=== PATIENT | male | born 1940 | race Caucasian/White ===

== ENCOUNTER 2016-05-19 07:31 | Outpatient (CLI) | payer MEDICARE ==
[2016-05-19 08:17] LABS: ALT (SGPT) 10 U/L (0-55); AST (SGOT) 11 U/L (5-34); Albumin 3.4 g/dL (3.4-4.8); Alkaline Phosphatase 58 U/L (40-150); Bilirubin, Direct 0.2 mg/dL (0.1-0.3); Bilirubin, Total 0.4 mg/dL (0.2-1.2); Cardiac Risk 2.1 (Less than 4.5); Cholesterol 108 mg/dL (< 200 Desired); HDL Cholesterol 51 mg/dL (>60 Neg Risk); LDL Cholesterol, Calculated 46 mg/dL; Protein, Total 5.4 g/dL (5.8-8.1); Triglycerides 54 mg/dL (Less than 150)
== END 2016-05-19 07:32 | disposition home or self-care (01) ==
LOC: MADLAB 07:31
PROVIDERS: ATTEND Internal Medicine Cardiovascular Disease
DX: E78.00 Pure hypercholesterolemia, unspecified (principal)
CPT/HCPCS: 36415; 80061; 80076

== ENCOUNTER 2016-07-12 06:45 | Outpatient (CLI) | payer MEDICARE ==
[2016-07-12 07:43] LABS: Anion Gap 13 mmol/L (10-20); Chloride 107 mmol/L (98-107); Glucose 102 mg/dL (83-110); Potassium 3.8 mmol/L (3.5-5.1)
[2016-07-12 08:31] LABS: BUN (Urea Nitrogen) 23 mg/dL (8.4-25.7); Calc. Creatinine Clearance 0 mL/min (70-130); Carbon Dioxide 28 mmol/L (23-31); Estimated GFR-MDRD 68; Sodium 144 mmol/L (136-145)
== END 2016-07-12 06:46 | disposition home or self-care (01) ==
LOC: MADLAB 06:45
PROVIDERS: ATTEND Internal Medicine Cardiovascular Disease
DX: E78.2 Mixed hyperlipidemia (principal); I25.10 Atherosclerotic heart disease of native coronary artery without angina pectoris; I10 Essential (primary) hypertension
CPT/HCPCS: 36415; 80048

== ENCOUNTER 2016-12-24 07:19 | Outpatient (CLI) | payer MEDICARE ==
[2016-12-24 08:10] LABS: Anion Gap 10 mmol/L (10-20); BUN (Urea Nitrogen) 26 mg/dL (8.4-25.7); Calc. Creatinine Clearance 0 mL/min (70-130); Calcium 8.5 mg/dL (7.8-10.44); Carbon Dioxide 28 mmol/L (23-31); Chloride 107 mmol/L (98-107); Estimated GFR-MDRD 64; Glucose 97 mg/dL (83-110); Potassium 3.7 mmol/L (3.5-5.1); Sodium 141 mmol/L (136-145)
== END 2016-12-24 07:20 | disposition home or self-care (01) ==
LOC: MADLAB 07:19
PROVIDERS: ATTEND Internal Medicine Cardiovascular Disease
DX: I25.10 Atherosclerotic heart disease of native coronary artery without angina pectoris (principal); E78.2 Mixed hyperlipidemia; I10 Essential (primary) hypertension
CPT/HCPCS: 36415; 80048

== ENCOUNTER 2018-03-15 14:14 | Emergency (ER) | payer MEDICARE ==
--- NOTE | 2018-03-15 15:13 | RAD ---
LEFT KNEE THREE VIEWS: INDICATIONS: Injury with pain. FINDINGS: A minimally displaced fracture is centered about the lateral tibial plateau, which does approximate t he lateral tibial spine, at the articular surface. There is mild joint capsular distention. Minute osteophytosis is present. IMPRESSION: Lateral tibial plateau fracture extending to the lateral tibial spine with associated mild joint caps ular distention. As necessary, CT may be performed for further delineation of the fracture site. POS: [facility]
== END 2018-03-15 15:37 | disposition home or self-care (01) ==
LOC: MADERS 14:14
DX: S82.142A Displaced bicondylar fracture of left tibia, initial encounter for closed fracture (principal); I25.10 Atherosclerotic heart disease of native coronary artery without angina pectoris; E78.5 Hyperlipidemia, unspecified; I10 Essential (primary) hypertension; F17.220 Nicotine dependence, chewing tobacco, uncomplicated; W55.82XA Struck by other mammals, initial encounter

== ENCOUNTER 2019-09-26 11:30 | Outpatient (CLI) | payer MEDICARE | END 2019-09-26 11:31 | disposition home or self-care (01) | LOC: MADLAB 11:30 | PROVIDERS: ATTEND Family Medicine | DX: N18.9 Chronic kidney disease, unspecified (principal); D63.1 Anemia in chronic kidney disease | CPT/HCPCS: 82274 ==

== ENCOUNTER 2019-11-19 09:59 | Outpatient (CLI) | payer MEDICARE ==
--- NOTE | 2019-11-19 12:31 | ULT ---
BILATERAL RENAL ULTRASOUND: Date: 11/19/2019 INDICATION: Chronic kidney disease. History of nephrolithiasis. FINDINGS: Kidneys are small, with right kidney measuring 8.5 cm and left kidney measuring 8.0 cm. Both kidneys show mild cortical thinning and increased cortical echogenicity consistent with the history of chroni c kidney disease. A right renal cyst measures 1.0-1.5 cm. A small left renal cyst measures 1.0 cm. Urinary bladder is mildly distended and appears unremarkable. Bladder volume recorded at 18 mL. Prostate is upper normal size, measured at 3.0 x 3.8 cm in axial plane. IMPRESSION: Chronic kidney changes described above with small bilateral renal cysts. POS: [facility]
== END 2019-11-19 10:00 | disposition home or self-care (01) ==
LOC: MADRAD 09:59
PROVIDERS: ATTEND Internal Medicine Nephrology
DX: N18.3 Chronic kidney disease, stage 3 (moderate) (principal); N28.1 Cyst of kidney, acquired; Z87.442 Personal history of urinary calculi
CPT/HCPCS: 76770

== ENCOUNTER 2020-07-18 10:06 | Outpatient (CLI) | payer MEDICARE | END 2020-07-18 10:07 | disposition home or self-care (01) | LOC: MADRAD 10:06 | PROVIDERS: ATTEND Internal Medicine Cardiovascular Disease | DX: I47.2 Ventricular tachycardia (principal) | CPT/HCPCS: 71046 ==